=== PATIENT | male | born 1985 | race Caucasian/White ===

== ENCOUNTER 2019-07-02 14:42 | Emergency (ER) | payer MEDICAID ==
--- NOTE | 2019-07-02 15:36 | Emergency Department Record ---
History of Present Illness - General Chief Complaint: Back Pain/Injury Stated Complaint: BACK PAIN Time Seen by Provider: 07/02/19 15:30 Source: Patient Mode of Arrival: Ambulatory Limitations: No limitations - History of Present Illness Initial Comments: {Pt with pain in the right low back for 1 day . "I have had this 3 times now". Pain worse with motion. Other episode resolved without treatment. No truama, lifting, injury. No dysuria, hematuria, no AP. No meds at home. No leg pain. No b/b incont. Onset/Timin -: Month(s) Similar Symptoms Previously: Yes Place: Home Radiation: Buttocks, Right leg Severity: Moderate Severity scale (1-10): 7 Quality: Aching, Stabbing Consistency: Constant Improves With: Supine Worsens With: Sitting upright Context: Unknown Associated Symptoms: Denies other symptoms - Related Data Previous Rx's Medication Instructions Recorded Ibuprofen [Motrin 600Mg] 600 mg PO Q6H 7 Days #40 tablet 07/02/19 Metaxalone [Skelaxin] 800 mg PO TID PRN 7 Days #20 tablet 07/02/19 Allergies Allergy/AdvReac Type Severity Reaction Status Date / Time No Known Allergies Allergy no Verified 07/02/19 15:13 allergies Travel Screening - Travel/Exposure Within Last 30 Days Have you traveled within the last 30 days?: No Review of Systems Constitutional: Denies: Chills, Fever Eyes: Denies: Eye discharge ENT: Denies: Congestion Respiratory: Denies: Cough Cardiovascular: Denies: Chest pain Endocrine: Denies: Fatigue Gastrointestinal: Denies: Abdominal pain, Diarrhea, Nausea, Vomiting Genitourinary: Denies: Dysuria, Frequency, Hematuria, Incontinence Musculoskeletal: Reports: As per HPI, Back pain Skin: Denies: Rash Neurological: Denies: Headache, Tingling, Weakness Psychiatric: Denies: Anxiety Hematological/Lymphatic: Denies: Anemia Past Medical History - SOCIAL HISTORY Smoking Status: Never smoker Alcohol Use: None Drug Use: None - RESPIRATORY Hx Respiratory Disorders: No - CARDIOVASCULAR Hx Cardio Disorders: No - NEURO Hx Neuro Disorders: No - GI Hx GI Disorders: No - Hx Genitourinary Disorders: No - ENDOCRINE Hx Endocrine Disorders: No - MUSCULOSKELETAL Hx Musculoskeletal Disorders: No - PSYCH Hx Psych Problems: No - HEMATOLOGY/ONCOLOGY Hx Hematology/Oncology Disorders: No Family Medical History Any Significant Family History?: No Physical Exam - General General Appearance: Alert, Oriented x3, Cooperative, No acute distress - Head Head exam: Normal inspection - Eye Eye exam: Normal appearance, PERRL - ENT ENT exam: Normal exam, Mucous membranes moist, Normal external ear exam, Normal orophraynx, TM's normal bilaterally - Neck Neck exam: Normal inspection, Full ROM. negative: Tenderness - Respiratory Respiratory exam: Normal lung sounds bilaterally. negative: Respiratory distress - Cardiovascular Cardiovascular Exam: Regular rate, Normal rhythm, Normal heart sounds - GI/Abdominal GI/Abdominal exam: Soft. negative: Tenderness - Extremities Extremities exam: Normal inspection, Full ROM, Normal capillary refill. negative: Tenderness - Back Back exam: Reports: Muscle spasm, Paraspinal tenderness, Tenderness. Denies: CVA tenderness (R), CVA tenderness (L), Rash noted, Vertebral tenderness - Neurological Neurological exam: Alert, Normal gait, Oriented X3, Reflexes normal (good toe and heel walk). negative: Motor sensory deficit - Psychiatric Psychiatric exam: Normal affect, Normal mood - Skin Skin exam: Normal color. negative: Rash Course Vital Signs 07/02/19 15:10 Temperature 98.0 F Pulse Rate 77 Respiratory 18 Rate Blood Pressure 126/85 Pulse Ox 97 - Reevaluation(s) Reevaluation #1: 07/02/19 15:[address] agrees with plan Disposition Disposition: Discharge Clinical Impression: Spasm of lumbar paraspinous muscle Disposition: Home, Self-Care Condition: (1) Good Instructions: Low Back Strain (ED) Additional Instructions: Warm shower and stretching followed buy ice. Meds as instructed. Walk and move around! Family doctor in 3-4 days Return to the ED as needed. ' Prescriptions: Ibuprofen [Motrin 600Mg] 600 mg PO Q6H 7 Days #40 tablet Metaxalone [Skelaxin] 800 mg PO TID PRN 7 Days #20 tablet PRN Reason: Muscle Spasms Time of Disposition: 15:36 Quality - Quality Measures Quality Measures: N/A - Blood Pressure Screening Does Patient Have Any of the Following: No Blood Pressure Classification: Pre-Hypertensive BP Reading Systolic Measurement: 126 Diastolic Measurement: 85 Screening for High Blood Pressure: < Pre-Hypertensive BP, F/U Documented > [[id number]] Pre-Hypertensive Follow-up Interventions: Follow-up with rescreen every year.
== END 2019-07-02 15:50 | disposition home or self-care (01) ==
LOC: ER 14:42
DX: M62.830 Muscle spasm of back (principal)
CPT/HCPCS: 99283